=== PATIENT | female | born 1980 | race Caucasian/White ===

== ENCOUNTER → 2017-08-24 14:10 | Outpatient (CLI) | payer OTHER, SELFPAY ==
[2017-08-24 17:44] LABS: Group B Strep DNA By PCR POSITIVE (Negative); Probe Check PASS
== END ==
PROVIDERS: Visit Provider Obstetrics & Gynecology
DX: Z36.85 Encounter for antenatal screening for Streptococcus B (principal)
CPT/HCPCS: 87653

== ENCOUNTER 2017-08-26 10:30 | Outpatient (CLI) | payer OTHER, SELFPAY ==
[2017-08-26 10:56] VITALS: BMI 28.9
--- NOTE | 2017-08-26 12:38 | OB.TRI.HP_ITS ---
History of Present Illness Reason For Visit: DECREASED MOVEMENT Date of Service: 08/26/17 Gestational age: 36.5 History of Present Illness: 36yo at 36.5 wga with complaint of decreased movement, dichorionic diamnionic twin gestation Home Medications Medication Instructions Recorded [place] 250 mg PO TID 08/26/17 Aspirin [Aspirin, Baby] 81 mg PO DAILY 08/26/17 Chlorophyllin Copper Complex 1 gm PO DAILY 08/26/17 [Chlorophyllin Sodium Copper] Ferrous Sulfate [Iron] 325 mg PO TID 08/26/17 Grape Seed Extract [Meganatural-Bp] 100 mg PO DAILY 08/26/17 Vitamins Tablet 1 tab PO DAILY 08/26/17 Allergies No Known Allergies Allergy (Verified 09/02/17 11:44) Physical Exam Vitals: AVSS NST - FHR Rate Baby A Baseline: 130 Variability:: Moderate Accelerations:: 15 x 15 Decelerations:: None NST Reactive:: Yes FHR Category:: Category I Uterine Activity:: 1/10 - FHR Rate Baby B Baseline: 140 Variability:: Moderate Accelerations:: 15 x 15 Decelerations:: None NST Reactive:: Yes FHR Category:: Category I Uterine Activity:: 1/10
== END 2017-08-26 11:40 | disposition home or self-care (01) ==
LOC: WPOUT 10:44 → WP 10:45
PROVIDERS: Family Provider Orthopaedic Surgery; PCP Orthopaedic Surgery; Visit Provider Obstetrics & Gynecology
DX: O36.8130 Decreased fetal movements, third trimester, not applicable or unspecified (principal); Z3A.36 36 weeks gestation of pregnancy; O30.043 Twin pregnancy, dichorionic/diamniotic, third trimester
CPT/HCPCS: 59025; 59050; 99218; G0378

== ENCOUNTER 2017-09-02 14:50 | Inpatient (IN) | payer SELFPAY, OTHER ==
[2017-09-02 11:51] VITALS: BMI 29.2
[2017-09-02 16:25] LABS: Absolute Lymphocyte Count 1.38 X10^3/ul (0.83-4.51); Absolute Neutrophil Count 5.9 X10^3/uL (2.0-7.7); Basophil# 0.02 X10^3/uL; Basophil% 0.2 % (0-1); Eosinophil# 0.09 X10^3/uL; Eosinophils% 1.1 % (0-5); Hematocrit 35.6 % (37-47); Hemoglobin 11.6 g/dl (12.0-15.0); Lymphocyte # 1.38 X10^3/ul (4.0); Lymphocyte % 17.1 % (19-41); Mean Corp Hgb Conc 32.6 g/gl (32-36); Mean Corpuscular Hgb 30.4 pg (27.0-32.0); Mean Corpuscular Volume 93.2 fL (81-99); Mean Platelet Vol. 10.3 fl (6.2-12.0); Monocyte# 0.59 X10^3/uL; Monocyte% 7.3 % (0-10); Neutrophil # 5.94 X10^3/uL (2.7-7.7); Neutrophil % 73.7 % (47-70); Platelet Count 146 K/mm3 (150-450); RBC Distribution Width CV 14.8 % (11.6-14.6); RBC Distribution Width SD 50.5 fl (35.1-43.9); Red Blood Count 3.82 M/mm3 (4.2-5.4); White Blood Count 8.1 K/mm3 (4.4-11.0)
[2017-09-02 16:26] LABS: POSITIVE COUNT NO; POSITIVE DIFFERENTIAL NO; POSITIVE MORPHOLOGY NO
[2017-09-02 16:33] LABS: Prothrombin Time (Protime)PT. 12.9 SECONDS (11.7-14.9)
[2017-09-02 16:34] LABS: Partial Thromboplast Time 26.1 Seconds (24.1-36.2)
[2017-09-03] VITALS (18 sets, daily range): BP systolic 113–132; BP diastolic 63–85; PULSE 18–85; RESP 16–22; TEMP 36–37.1; O2SAT 94–98
[2017-09-03] MEDS: Lactated Ringers 1,000 ML 999 ML IV (08:16)
[2017-09-03] MEDS: 0.9% Saline Lock 10 ML Syringe IV (08:17)
[2017-09-03] MEDS: Sodium Citrate/Citric Acid 30 ML UDC PO (08:36)
[2017-09-03] MEDS: Oxytocin 30 units/NS 500 ml 30 UNITS/500 ML IV.SOLN 167 UNITS IV (09:05)
[2017-09-03] MEDS: Methylergonovine 0.2 MG/ML Ampul IM (09:14)
--- NOTE | 2017-09-03 09:54 | PCM.OP.BLANK ---
Operative Report Date of Procedure: 09/03/17 Surgeon: Jignesh Coburn MD, FACOG Distributor Of Directories: [facility] Anesthesia: Alex Mayorga MD Anesthesia: Spinal with Duramorph Pre-op Diagnosis: - -Twin Gestation, Breech Presentation, Advanced Cervical Dilation and Prodromal Labor Post-Op Diagnosis: - -Twin Gestation, Breech Presentation, Advanced Cervical Dilation and Prodromal Labor Procedure: Primary low Transverse Cervical Caesarean Section Findings: Baby A: viable female with Apgars of 9/9 in victoria breech presentation with clear amniotic fluid and normal three-vessel placenta; baby B: viable male infant with Apgars of 9/9 in occiput anterior presentation with normal three-vessel placenta and clear amniotic fluid. Indication: This is a 36-year-old grand multiparous patient who presents for primary at 37 5/7 weeks gestation. care has been uneventful except for twin gestation and recent advanced cervical dilation and prodromal labor. Cervix was 5-6 cm dilated 80-85% effaced and -2 station in the office. The patient lives approximately 45-60 minutes away from the hospital. Vaginal breech delivery was discussed but declined in favor of proceeding with primary section. The patient has been counseled regarding the risk and indications of this procedure including the possibility of bleeding infection and injury to surrounding structures such as bowel bladder. All questions were answered. Procedure: Patient was taken to the operating room where after spinal anesthesia was placed, the patient was prepped and draped in usual sterile fashion and a Mendenhall catheter was placed. The abdomen was entered through a Pfannenstiel incision and peritoneum was entered bluntly. After developing a bladder flap on the lower uterine segment a low transverse incision was made on the uterus and baby A was easily delivered onto the operative field the nose mouth and oropharynx were bulb suctioned. Subsequently a viable victoria breech female infant was born with Apgars of 9/9 and then a viable male cephalic was born with Apgars of 9/9. The infants were noted to cry move all extremities vigorously on the operative field. The umbilical cords were doubly clamped and ligated and infants handed to the nursery personnel who were present for the delivery. Placentae were delivered and both noted to be 3 vessels and normal. Uterus was exteriorized remaining placental tissue was removed. The uterus was then closed in 2 layers first with running locked Number 1 Vicryl suture followed by a second imbricating layer with Number 1 Vicryl suture. Number 1 Vicryl suture was then used in a horizontal mattress interrupted fashion to affect final hemostasis of the uterine incision line. Normal fallopian tubes and ovaries were visualized and the uterus was returned to the pelvis. Hemostasis was noted and rectus abdominis muscles were reapproximated in the midline with interrupted Number 1 Vicryl suture in a horizontal mattress fashion. Fascia was closed with running Number 1 Vicryl suture. Subcutaneous tissue was closed with running 3-0 Vicryl suture and skin was closed with 4-0 monocryl suture in a running subcuticular fashion. Steri strips, telfa, and tape were placed across the incision. The patient tolerated the procedure well and was taken to the recovery room in satisfactory condition. Sponge, needle, and instrument counts were all reportedly correct. EBL was less than 500 cc. Ancef 2 gms IV was given prior to the procedure. Spicemen to Pathology: None Complications: None
--- NOTE | 2017-09-03 10:05 | DCINST_ITS ---
Discharge Diet: No Restrictions Discharge Activity: May not drive while taking narcotic pain medications., May Shower, May Take a Tub Bath May resume sexual activity in: 4-6 weeks Lifting Restrictions: 20 pounds Additional Activity Instructions:: Nothing in the vagina for 4-6 weeks. You may return to work/school in 6 weeks. Call your doctor if your incision/area has: Continuous Slow Oozing, Sudden Increased Bleeding, Increased Pain/ Swelling, Increased Redness, Foul Smelling Discharge Call your doctor if you observe: Fever of 101 or Higher, Inability to urinate, Inability to have a bowel movement, Using more than one pad per hour Additional Instructions: If you experience any of the following, contact your healthcare provider. * Bleeding that soaks a pad every hour for 2 hours * Unrelieved incision or abdominal pain * Swelling, redness, discharge or bleeding from your incision or episiotomy site * Your incision begins to separate * Problems urinating (including inability to urinate or burning while urinating) . * Visual changes * Severe headache * Flu-like symptoms * Pain or redness in one of both of your breasts * Pain, warmth, tenderness or swelling in your legs, especially the calf area * Frequent nausea and vomiting * Symptoms of depression or anxiety If you experience any of the following, call 911 or go to the nearest Emergency Room. * Chest pain * Problems breathing * Seizure activity * Partial or complete paralysis of a body part, slurred speech, weakness or drooping of the face, or a sudden inability to walk or hold your balance Allergies/Adverse Reactions: Allergies No Known Allergies Allergy (Verified 09/02/17 11:44) Medications to take at Discharge [place] 250 mg PO TID 08/26/17 Aspirin [Aspirin, Baby] 81 mg PO DAILY 08/26/17 Chlorophyllin Copper Complex [Chlorophyllin Sodium Copper] 1 gm PO DAILY Ferrous Sulfate [Iron] 325 mg PO TID 08/26/17 Grape Seed Extract [Meganatural-Bp] 100 mg PO DAILY 08/26/17 Vitamins Tablet 1 tab PO DAILY 08/26/17 Docusate Sodium [Colace] 100 mg PO BID PRN PRN #60 cap 09/03/17 Oxycodone [Oxyir] 5 - 10 mg PO Q6H PRN PRN 7 Days #20 tab 09/03/17 The following prescriptions were given: Oxycodone [Oxyir] 5 - 10 mg PO Q6H PRN PRN 7 Days #20 tab PRN Reason: Severe Pain (-05/04) Docusate Sodium [Colace] 100 mg PO BID PRN PRN #60 cap PRN Reason: Constipation Follow-Up: Call to make an appointment with your doctor for an incision check in 1-2 weeks. You will also need a 6 week post- follow up appointment. Please Follow Up With: Jignesh Coburn MD - [phone] When: Call to make an appointment for an incision check in 2 weeks. Primary Care Physician: Brett Bradford MD [Primary Care Provider] -
[2017-09-03] MEDS: Lactated Ringers 1,000 ML 150 ML IV (10:21)
[2017-09-03] MEDS: Ketorolac 30 MG/ML Syringe IV ×2 (16:39→21:56)
[2017-09-03] MEDS: Cefazolin 1 GM/50 ML BAG IV (18:33)
[2017-09-03] MEDS: Lactated Ringers 1,000 ML 100 ML IV (20:19)
[2017-09-04] VITALS (9 sets, daily range): BP systolic 104–133; BP diastolic 57–76; PULSE 70–89; RESP 15–16; TEMP 36.7–37.3; O2SAT 95–98
[2017-09-04] MEDS: Cefazolin 1 GM/50 ML BAG IV (02:34)
[2017-09-04] MEDS: Ketorolac 30 MG/ML Syringe IV ×4 (04:52→21:17)
[2017-09-04 05:24] LABS: Hematocrit 31.3 % (37-47); Hemoglobin 10.2 g/dl (12.0-15.0); Mean Corp Hgb Conc 32.6 g/gl (32-36); Mean Corpuscular Hgb 30.7 pg (27.0-32.0); Mean Corpuscular Volume 94.3 fL (81-99); Mean Platelet Vol. 9.8 fl (6.2-12.0); Platelet Count 109 K/mm3 (150-450); RBC Distribution Width SD 51.2 fl (35.1-43.9); Red Blood Count 3.32 M/mm3 (4.2-5.4); White Blood Count 8.4 K/mm3 (4.4-11.0)
[2017-09-04 05:27] LABS: Scan Indicated on CBC? Y/N NO
[2017-09-04] MEDS: Lactated Ringers 1,000 ML 100 ML IV (06:01)
[2017-09-04] MEDS: 0.9% Saline Lock 10 ML Syringe IV ×4 (08:20→21:17)
--- NOTE | 2017-09-04 11:44 | PCM.PN.OB ---
Subjective: Patient tolerating diet well. Positive flatus. Minimal pain. Minimal vaginal bleeding. - Physical Exam Vital Signs AF, VSS Temp Pulse Resp BP Pulse Ox 99.1 F 79 16 104/62 98 09/04/17 08:10 09/04/17 08:10 09/04/17 08:10 09/04/17 08:10 09/04/17 08:10 Oxygen Delivery Method Room Air Weight: 175 lb 14.862 oz Body Mass Index (BMI) 29.2 Intake and Output for Last 24 Hours 09/02/17 09/03/17 09/04/17 23:59 23:59 23:59 Intake Total 4379 / 4379 1323 / 1323 Output Total 1400 / 1400 1900 / 1900 Balance 2979 / 2979 -577 / -577 Laboratory Tests Past 24 Hrs 09/03/17 09/04/17 11:05 05:08 WBC 8.4 RBC 3.32 L Hgb 10.2 L Hct 31.3 L MCV 94.3 MCH 30.7 MCHC 32.6 RDW 15.0 H RDW Differential 51.2 H Plt Count 109 L MPV 9.8 Screen NEGATIVE Baby's Blood Type A POSITIVE Baby's CRISSY NEGATIVE Wound is clean, dry, intact. Good urine output, hemoglobin okay. Assessment/Plan Doing well. Continuing present care.
[2017-09-04] MEDS: Senna/Docusate Sodium 1 Tablet PO (21:17)
[2017-09-05] MEDS: oxyCODONE 5 MG Tablet PO ×3 (02:38→14:16)
[2017-09-05 02:42] VITALS: BP 139/79; PULSE 70; RESP 16; TEMP 36.7
[2017-09-05] MEDS: Ketorolac 30 MG/ML Syringe IV ×2 (03:35→10:14)
[2017-09-05] MEDS: 0.9% Saline Lock 10 ML Syringe IV ×2 (03:35→10:14)
[2017-09-05] MEDS: Senna/Docusate Sodium 1 Tablet PO (08:12)
[2017-09-05 08:30] VITALS: BP 116/70; PULSE 81; RESP 16; TEMP 36.6; O2SAT 98
--- NOTE | 2017-09-05 08:52 | NURSING ---
varicostities noted in both legs , non tender
--- NOTE | 2017-09-05 11:22 | PCM.PN.OB ---
Subjective: Patient without complaints. Tolerating diet well. Positive flatus. Ready to go home. - Physical Exam Vital Signs AF, VSS Temp Pulse Resp BP Pulse Ox 97.8 F 81 16 116/70 98 09/05/17 08:30 09/05/17 08:30 09/05/17 08:30 09/05/17 08:30 09/05/17 08:30 Oxygen Delivery Method Room Air Weight: 175 lb 14.862 oz Body Mass Index (BMI) 29.2 Intake and Output for Last 24 Hours 09/03/17 09/04/17 09/05/17 23:59 23:59 23:59 Intake Total 4379 / 4379 1323 / 1323 Output Total 1400 / 1400 2500 / 2500 Balance 2979 / 2979 -1177 / -1177 Wound is clean, dry, intact. Good urine output. Assessment/Plan Doing well. Will release to home with routine instructions.
[2017-09-05 13:42] VITALS: BP 111/64; PULSE 85; RESP 20; TEMP 36.7; O2SAT 96
[2017-09-05 14:55] VITALS: BP 111/64; PULSE 85; RESP 20; TEMP 36.7; O2SAT 96
--- NOTE | 2017-09-08 09:07 | PCM.DC.BLA ---
Discharge Summary Date of Admission: 09/03/17 Date of Discharge: 09/05/17 Summary: Admission diagnosis: Twin Gestation, Breech Presentation, Advanced Cervical Dilation and Prodromal Labor Discharge diagnosis: Twin Gestation, Breech Presentation, Advanced Cervical Dilation and Prodromal Labor Procedure: Low transverse cervical HPI: Uneventful care. PE: Unremarkable. Hospital Course: The patient is a 36 year old who presented to and D at 37+ weeks gestation. She had a primary for Twin Gestation, Breech Presentation, Advanced Cervical Dilation and Prodromal Labor. Postoperatively she did well demonstrating a stable HGB on POD 1 and bowel fxn by POD 2 at which time it was felt she was ready for discharge. Homegoing Instruction: She was instructed not to drive for several days or if using narcotic pain medication, not to put anything in the vagina for 4 weeks, not to lift >25 lbs for 6 weeks and to call the office for an appointment in 2 weeks and 6 weeks. Discharge Medications: She was given a prescription for Oxycodone and Colace and also plans to use Aleve or Motrin or Tylenol at home as needed for pain and constipation.
== END 2017-09-05 14:55 | disposition home or self-care (01) | DRG 765 ==
PROVIDERS: Admitting Provider Obstetrics & Gynecology; Family Provider Orthopaedic Surgery; PCP Orthopaedic Surgery; Visit Provider Obstetrics & Gynecology
DX: O32.1XX1 Maternal care for breech presentation, fetus 1 (principal); O30.003 Twin pregnancy, unspecified number of placenta and unspecified number of amniotic sacs, third trimester; Z37.2 Twins, both liveborn; Z3A.37 37 weeks gestation of pregnancy; Z87.442 Personal history of urinary calculi
CPT/HCPCS: 59050; 85025; 85027; 85461; 85610; 85730; 86850; 86900; 90384; 93460; 99218; J7120; A4216; G0378; J2405; J2790

== ENCOUNTER → 2017-10-20 09:33 | Outpatient (CLI) | payer OTHER, SELFPAY ==
[2017-10-22 14:40] LABS: HPV Reflexed? NOT INDICATED
== END ==
PROVIDERS: Family Provider Orthopaedic Surgery; PCP Orthopaedic Surgery; Visit Provider Obstetrics & Gynecology
DX: Z12.4 Encounter for screening for malignant neoplasm of cervix (principal)
CPT/HCPCS: 88175; G0145